=== PATIENT | female | born 1955 | race Two or more races ===

== ENCOUNTER 2017-01-10 05:17 | Emergency (ER) | payer OTHER ==
[~2017-01-10] VITALS: Ht 149.9 cm; Wt 45.4 kg
--- NOTE | 2017-01-10 05:45 | PHYS DOC ---
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 Adult General Chief Complaint Chief Complaint: DIZZINESS HPI HPI Patient is a 61 year old female who presents with dizziness. She is presently under evaluation by an ENT and oncologist for CLL and HPV neck cancer. She is apparently due to see her ENT today. She has been having some hearing difficulties. She states this dizziness however is new. Started at midnight. She felt like the room was spinning and it woke her up. She has not fallen yet. Spouse's concern is they have a low stairs in her house. She denies any chest pain. No difficulty breathing. No vomiting but very nauseated. No headache Review of Systems Review of Systems Constitutional: Denies fever or chills Eyes: Denies change in visual acuity, redness, or eye pain HENT: Denies nasal congestion or sore throat. HEARING DIFFICULTIES Respiratory: Denies cough or shortness of breath Cardiovascular: No additional information not addressed in HPI. No chest pain. GI: Denies abdominal pain, vomiting, bloody stools or diarrhea. POSITIVE FOR NAUSEA : Denies dysuria or hematuria Musculoskeletal: Denies back pain or joint pain Integument: Denies rash or skin lesions Neurologic: Denies headache, focal weakness or sensory changes. Dizziness. Unsteady gait. Current Medications Current Medications Current Medications Medications (Trade) Dose Ordered Sig/Luna Start Time Stop Time Status Last Admin Dose Admin Ondansetron HCl (Zofran) 4 mg 1X ONCE 01/10/17 05:45 01/10/17 05:46 UNV Sodium Chloride 1,000 ml @ 100 mls/hr Q10H 01/10/17 05:33 01/10/17 15:32 UNV Allergies Allergies ALL PCN Physical Exam Physical Exam Constitutional: Well developed, thin, no acute distress, non-toxic appearance. HENT: Normocephalic, atraumatic, bilateral external ears normal, oropharynx moist, no oral exudates, nose normal. Eyes: PERRLA, EOMI, conjunctiva normal, no discharge. Neck: Normal range of motion, no tenderness, supple, no stridor. Mass palpable right anterior lateral neck; non tender. Non fluctuant. Cardiovascular:Heart rate regular rhythm, no murmur Lungs & Thorax: Bilateral breath sounds clear to auscultation Abdomen: Bowel sounds normal, soft, no tenderness, no masses, no pulsatile masses. Skin: Warm, dry, no erythema, no rash. Back: No tenderness, no CVA tenderness. Extremities: No tenderness, no cyanosis, no clubbing, ROM intact, no edema. Neurologic: Alert and oriented X 3, normal motor function, normal sensory function, no focal deficits noted. Mild ataxia noted with standing. Finger to Nose normal. Psychologic: Affect normal, judgement normal, mood normal. Current Patient Data Vital Signs BP 130/55, P 81, sat 97% Radiology/Procedures Radiology/Procedures CXR: Interpreted by myself. ? fullness in right supraclavicular area. No pleural effusion; cardiac silhouette WNL. PATIENT: ARLIN HARMON ACCOUNT: [id number] : 1955 LOCATION: ER AGE: 61 SEX: F EXAM STATUS: REG ER ORD. PHYSICIAN: DEIRDRE SHEARER MD REASON: Lightheaded, dizzy; recent dx of cancer PROCEDURE: PORTABLE CHEST 1V Portable chest, 01/10/2017: History: Lightheadedness, dizziness The heart size and pulmonary vascularity are normal. The lungs are clear. There is no evidence of pleural fluid. IMPRESSION: No acute cardiopulmonary abnormality is detected. DICTATED AND SIGNED BY: TARIK CHI MD DATE: 01/10/17701 CC: DEIRDRE SHEARER MD; MOIRA ORTEGA MD; DEN SUE DO ~ PATIENT: ARLIN HARMON ACCOUNT: [id number] : 1955 LOCATION: ER AGE: 61 SEX: F EXAM STATUS: REG ER ORD. PHYSICIAN: DEIRDRE SHEARER MD REASON: Lightheaded, dizzy; recent dx of cancer; hearing loss PROCEDURE: CT HEAD WO CONTRAST INDICATION: Lightheaded and dizziness COMPARISON: None TECHNIQUE: Axial CT images obtained through the head. One or more of the following individualized dose reduction techniques were utilized for this examination: 1. Automated exposure control; 2. Adjustment of the mA and/or kV according to patient size; 3. Use of iterative reconstruction technique. FINDINGS: No midline shift. Ventricles and sulci are prominent. Basilar cistern patent. No gross hemorrhage or intracranial mass. No displaced skull fracture. Regions of low attenuation of the white matter. Small amount of fluid in maxillary sinuses. Opacification mastoid air cells IMPRESSION: No acute intracranial hemorrhage. Regions of low attenuation of the white matter. Nonspecific but frequently secondary to chronic small vessel ischemic disease. Focal thickening of the calvarium adjacent to the right mastoid air cells with apparent osseous excrescence or sclerotic lesion. This measures approximately 21 by 10 millimeter. Opacification of bilateral mastoid air cells. Could be from congestion or mastoiditis. Electronically signed by: Toni Thompson (January 10, 2017 06:15:28) DICTATED AND SIGNED BY: TONI THOMPSON MD DATE: 01/10/17 06 CC: DEIRDRE SHEARER MD; MOIRA ORTEGA MD; DEN SUE DO ~ Course & Med Decision Making Course & Med Decision Making Pertinent Labs and Imaging studies reviewed. (See chart for details) Patient presents with dizziness. This could be multifactorial. In light of the fact that she is being evaluated for a new onset cancer this is more concerning. She is also Sinhala-speaking so this is very difficult to obtain an accurate history and physical and she is very hard of hearing as well. Spell does not know the names of the physicians. 0600 AM: care of patient turned over to Dr Sue. Patient in CT; EKG and lab results pending. See his note for remainder of evaluation and disposition 0615: Pt seen, chart reviewed, no current new issues awaiting studies. EKG (06) Interp by me: NSR 69 bpm, diffuse T flattening no STEMI WBC 68.6 (spouse reports last check WBC 80's), Plt 123, Hb 10.9, Urine Dip +LE and blood IMPRESSIONS: Vertigo-likely multifactorial Mastoiditis--rocephin IV today Neck Mass--ENT appt today 1400 CLL--follows with oncology labs improved UTI--rocephin IV today After rocephin infused will d/c pt home to follow up with ENT as scheduled today. Her labs and ED notes will be given to her in paper form, Radiology disk will be sent with pt as well for ENT review today. Oz Disclaimer Oz Disclaimer This chart was dictated in whole or in part using Voice Recognition software in a busy, high-work load, and often noisy Emergency Department environment. It may contain unintended and wholly unrecognized errors or omissions. Departure Disposition: HOME, SELF-CARE Diagnosis: Vertigo, mastoiditis, UTI, Neck mass, CLL Condition: STABLE Patient Instructions: Mastoiditis, Vertigo, [id number] Referrals: OMIRA ORTEGA MD (PCP) Additional Instructions: No driving or operating machinery until cleared by doctor. Rest, no strenuous activity today. Rocephin 1g IV, NS 1L IV given today. Rx: zofran odt, meclizine Copies of your ED physician notes and labs will be given to you paper format, your imaging studies via disk format. Please take these to your ENT doctor visit today at 1400 for their review. Return to ED with new or changing symptoms. Departure Departure: Disposition: HOME, SELF-CARE Condition: STABLE Referrals: MOIRA ORTEGA MD (PCP) Patient Instructions: Mastoiditis, Vertigo, [id number] Additional Instructions: No driving or operating machinery until cleared by doctor. Rest, no strenuous activity today. Rocephin 1g IV, NS 1L IV given today. Rx: zofran odt, meclizine Copies of your ED physician notes and labs will be given to you paper format, your imaging studies via disk format. Please take these to your ENT doctor visit today at 1400 for their review. Return to ED with new or changing symptoms. Scripts Ondansetron (ZOFRAN ODT) 4 Mg Tab.rapdis 4 MG PO Q6HRS for NAUSEA/VOMITING, #30 TAB Prov: DEN SUE DO 01/10/17 Meclizine Hcl (MECLIZINE HCL) 25 Mg Tablet 1 TAB PO TID for vertigo, #90 TAB Prov: DEN SUE DO 01/10/17 DEIRDRE SHEARER MD January 10, 2017 05:45 DEN SUE DO January 10, 2017 06:44
[2017-01-10 06:14] LABS: CALCIUM 9.4 mg/dL (8.5-10.1); GFR 56.6; POTASSIUM 4.4 mmol/L (3.5-5.1)
[2017-01-10 06:15] LABS: BASO % 0 % (0-3); EOS # 0.1 x10^3/uL (0.0-0.7); EOS % 0 % (0-3); HEMATOCRIT 34.9 % (36.0-47.0); HEMOGLOBIN 10.9 g/dL (12.0-15.5); LYMPH # 64.9 x10^3/uL (1.0-4.8); LYMPH % 95 % (24-48); MEAN CORPUSCULAR HEMOGLOBIN 30 pg (25-35); MEAN CORPUSCULAR HGB CONC 31 g/dL (31-37); MEAN CORPUSCULAR VOLUME 96 fL (79-100); MONO # 0.5 x10^3/uL (0.0-1.1); MONO % 1 % (0-9); NEUT # 3.1 x10^3uL (1.8-7.7); NEUT % 5 % (31-73); PLATELET COUNT 123 x10^3/uL (140-400); RED BLOOD COUNT 3.63 x10^6/uL (3.50-5.40); RED CELL DISTRIBUTION WIDTH 15.7 % (11.5-14.5)
[2017-01-10] MEDS ORDERED: IV NORMAL SALINE 1,000ML 1,000 ML IV SCH (06:15)
[2017-01-10] MEDS ORDERED: ONDANSETRON PF 4 MG/2 ML VIAL. IV ONE (06:15)
--- NOTE | 2017-01-10 06:16 | RAD ---
INDICATION: Lightheaded and dizziness COMPARISON: None TECHNIQUE: Axial CT images obtained through the head. One or more of the following individualized dose reduction techniques were utilized for this examination: 1. Automated exposure control; 2. Adjustment of the mA and/or kV according to patient size; 3. Use of iterative reconstruction technique. FINDINGS: No midline shift. Ventricles and sulci are prominent. Basilar cistern patent. No gross hemorrhage or intracranial mass. No displaced skull fracture. Regions of low attenuation of the white matter. Small amount of fluid in maxillary sinuses. Opacification mastoid air cells IMPRESSION: No acute intracranial hemorrhage. Regions of low attenuation of the white matter. Nonspecific but frequently secondary to chronic small vessel ischemic disease. Focal thickening of the calvarium adjacent to the right mastoid air cells with apparent osseous excrescence or sclerotic lesion. This measures approximately 21 by 10 millimeter. Opacification of bilateral mastoid air cells. Could be from congestion or mastoiditis. Electronically signed by: Mayco Thomspon (January 10, 2017 06:15:28)
[2017-01-10 06:22] LABS: WHITE BLOOD COUNT 68.6 x10^3/uL (4.0-11.0)
--- NOTE | 2017-01-10 06:49 | EKG ---
[address] [address] Test Date: 2017-01-10 Test Time: 06:29:27 Pat Name: ARLIN HARMON Department: Room: Gender: F Wool Brusher: GAIL : 1955 Requested By: DEIRDRE SHEARER Order Number: [id number] Reading MD: Guillaume Duran Measurements Intervals [place] Rate: 69 P: 47 MD: 150 QRS: 9 QRSD: 84 T: 11 QT: 396 QTc: 426 Interpretive Statements SINUS RHYTHM Electronically Signed On 01-10-2017 10:55:35 CDT by Guillaume Duran
--- NOTE | 2017-01-10 07:06 | RAD ---
Portable chest, 01/10/2017: History: Lightheadedness, dizziness The heart size and pulmonary vascularity are normal. The lungs are clear. There is no evidence of pleural fluid. IMPRESSION: No acute cardiopulmonary abnormality is detected.
[2017-01-10] MEDS ORDERED: cefTRIAXone SODIUM 1 GM VIAL IV ONE (07:29)
[2017-01-10] MEDS ORDERED: IV NORMAL SALINE 50ML 50 ML ONE (07:29)
[2017-01-10 07:35] LABS: BILIRUBIN,URINE NEG (NEG); CLARITY,URINE CLEAR; GLUCOSE,URINE NEG (NEG); NITRITE,URINE NEG (NEG); UROBILINOGEN,URINE 0.2 mg/dL (0.2 mg/dL)
[2017-01-10 07:36] LABS: COLOR,URINE YELLOW
[2017-01-10] MEDS ORDERED: ONDA4TAB10 PO (07:41)
[2017-01-10] MEDS ORDERED: MECL25TA3 PO (07:41)
[2017-01-10 08:30] VITALS: BP 101/50
[2017-01-10 08:34] LABS: % BANDS 0 % (0-9); % BASOS 0 % (0-3); % EOS 1 % (0-5); % LYMPHS 92 % (24-48); % MONOS 1 % (0-10); % SEGS 6 % (35-66); PLT ESTIMATE DECREASED (ADEQUATE)
[2017-01-10 08:35] LABS: SMUDGE CELLS PRESENT
== END 2017-01-10 08:53 | disposition home or self-care (01) ==
LOC: ER 05:26
DX: R42 Dizziness and giddiness (principal); H70.90 Unspecified mastoiditis, unspecified ear; N39.0 Urinary tract infection, site not specified; R22.1 Localized swelling, mass and lump, neck; C91.10 Chronic lymphocytic leukemia of B-cell type not having achieved remission; Z77.22 Contact with and (suspected) exposure to environmental tobacco smoke (acute) (chronic)
CPT/HCPCS: 36415; 70450; 71010; 80048; 81003; 82553; 84484; 85007; 85027; 93005; 99285-25